=== PATIENT | male | born 1995 | race Caucasian/White ===

== ENCOUNTER 2019-10-08 19:44 | Emergency (ER) | payer OTHER ==
[~2019-10-08] VITALS: Ht 175.3 cm; Wt 70.5 kg
[2019-10-08 20:05] LABS: BASO % 0.3 % (0.0-1.0); EOS % 0.2 % (0.0-3.0); HEMATOCRIT 42.4 % (42.0-52.0); HEMOGLOBIN 14.9 g/dl (13.5-17.5); LYMPH # 0.4 10^3/uL (1.5-5.0); LYMPH % 3.7 % (24.0-44.0); MEAN CORPUSCULAR HEMOGLOBIN 31.8 pg (27.0-33.0); MEAN CORPUSCULAR HGB CONC 35.1 g/dl (32.0-36.5); MEAN CORPUSCULAR VOLUME 90.4 fl (80.0-96.0); MONO # 0.5 10^3/uL (0.0-0.8); MONO % 4.6 % (0.0-5.0); NEUTROPHILS % 90.9 % (36.0-66.0); PLATELET COUNT, AUTOMATED 243 10^3/uL (150-450); RED BLOOD COUNT 4.69 10^6/uL (4.30-6.10)
[2019-10-08] MEDS ORDERED: KETOROLAC 30 MG/ML VIAL (J1885) IV ONE (20:30)
[2019-10-08] MEDS ORDERED: NS 1,000 ML IV ONE (20:30)
[2019-10-08] MEDS ORDERED: ONDANSETRON 4MG/2ML VIAL (J2405) IV ONE (20:30)
[2019-10-08 20:32] LABS: ALT/SGPT 46 U/L (12-78); BILIRUBIN,DIRECT 0.2 MG/DL (0.0-0.2); BILIRUBIN,TOTAL 0.8 MG/DL (0.2-1.0); BLOOD UREA NITROGEN 16 MG/DL (7-18); CALCIUM LEVEL 8.8 MG/DL (8.5-10.1); CARBON DIOXIDE LEVEL 29 MEQ/L (21-32); CHLORIDE LEVEL 105 MEQ/L (98-107); CREATININE FOR GFR 1.09 MG/DL (0.70-1.30); GLOMERULAR FILTRATION RATE > 60.0 (>60); GLUCOSE, FASTING 107 MG/DL (70-100); LIPASE 46 U/L (73-393); POTASSIUM SERUM 4.4 MEQ/L (3.5-5.1); SODIUM LEVEL 140 MEQ/L (136-145); TOTAL PROTEIN 7.7 GM/DL (6.4-8.2)
[2019-10-08] MEDS ORDERED: ONDA4TAB6 PO (22:33)
[2019-10-08 22:40] VITALS: BP 120/58
== END 2019-10-08 22:49 | disposition home or self-care (01) ==
LOC: M ED 19:44
DX: K52.9 Noninfective gastroenteritis and colitis, unspecified (principal); R51 Headache; F17.210 Nicotine dependence, cigarettes, uncomplicated
CPT/HCPCS: 80048; 80076; 81001; 83690; 85025; 96374; 96375; 99284; J1885; J2405

== ENCOUNTER 2019-10-30 08:27 | Emergency (ER) | payer OTHER ==
[~2019-10-30] VITALS: Ht 177.8 cm; Wt 71.1 kg
[2019-10-30 08:27] VITALS: BP 125/66
[~2019-10-30 08:27] MED LIST: ONDA4TAB6 PO
[2019-10-30] MEDS ORDERED: ONDANSETRON 4 MG ORAL DISINTEGRATING TAB (Q0162 PER 1MG) PO ONE (09:30)
[2019-10-30] MEDS ORDERED: ONDA4TAB6 PO (09:31)
== END 2019-10-30 09:45 | disposition home or self-care (01) ==
LOC: M ED 08:27
DX: R11.2 Nausea with vomiting, unspecified (principal); R10.9 Unspecified abdominal pain; F17.218 Nicotine dependence, cigarettes, with other nicotine-induced disorders
CPT/HCPCS: 99282; Q0162

== ENCOUNTER 2022-05-25 13:01 | Inpatient (IN) | payer MEDICAID, OTHER, SELFPAY ==
[~2022-05-25] VITALS: Ht 175.3 cm; Wt 68.1 kg
[2022-05-25 15:00] LABS: HEMOGLOBIN 13.8 g/dl (13.5-17.5); MEAN CORPUSCULAR HEMOGLOBIN 32.2 pg (27.0-33.0); MEAN CORPUSCULAR HGB CONC 36.3 g/dl (32.0-36.5); MEAN CORPUSCULAR VOLUME 88.8 fl (80.0-96.0); PLATELET COUNT, AUTOMATED 263 10^3/uL (150-450); RED BLOOD COUNT 4.28 10^6/uL (4.30-6.10); WHITE BLOOD COUNT 9.4 10^3/uL (4.0-10.0)
[2022-05-25 15:26] LABS: RSV AMPLIFICATION NEGATIVE (NEGATIVE)
[2022-05-25 15:29] LABS: ACETAMINOPHEN LEVEL < 2.0 UG/ML (10.0-30.0); ALBUMIN 4.1 GM/DL (3.2-5.2); ALT/SGPT 37 U/L (12-78); BILIRUBIN,DIRECT < 0.1 MG/DL (0.0-0.2); BILIRUBIN,TOTAL 0.4 MG/DL (0.2-1.0); BLOOD UREA NITROGEN 10 MG/DL (7-18); CALCIUM LEVEL 9.7 MG/DL (8.5-10.1); CARBON DIOXIDE LEVEL 27 MEQ/L (21-32); CHLORIDE LEVEL 108 MEQ/L (98-107); CREATININE FOR GFR 0.93 MG/DL (0.70-1.30); ETHYL ALCOHOL (ETHANOL) < 0.003 % (0.000-0.010); GLOMERULAR FILTRATION RATE > 60.0 (>60); GLUCOSE, FASTING 99 MG/DL (70-100); SALICYLATE LEVEL < 1.7 MG/DL (5.0-30.0); SODIUM LEVEL 141 MEQ/L (136-145); TOTAL PROTEIN 7.4 GM/DL (6.4-8.2)
[2022-05-25 17:13] LABS: AMPHETAMINES LEVEL URINE NEGATIVE (NEGATIVE); BARBITURATES URINE NEGATIVE (NEGATIVE); BENZODIAZEPINES URINE NEGATIVE (NEGATIVE); CANNABINOIDS URINE NEGATIVE (NEGATIVE); COCAINE METABOLITE URINE NEGATIVE (NEGATIVE); METHADONE URINE NEGATIVE (NEGATIVE); OPIATES URINE NEGATIVE (NEGATIVE); PHENCYCLIDINE URINE NEGATIVE (NEGATIVE)
[2022-05-26] MEDS ORDERED: HOME MED LIST COMPLETE! XX SCH (11:10)
[2022-05-27] MEDS ORDERED: OLANZapine ORAL DISINTEGRATING TAB 5MG PO PRN (12:50)
[2022-05-27] MEDS ORDERED: MOM 30ML SUSPENSION UDC PO PRN (12:50)
[2022-05-27] MEDS ORDERED: MAALOX 30 ML SUSP *UDC PO PRN (12:50)
[2022-05-27] MEDS ORDERED: IBUPROFEN 400MG TAB PO PRN (12:50)
[2022-05-27 17:27] VITALS: BP 118/60
[2022-05-27] MEDS: NICOTINE 21MG/24HR 1 EA TRANSDERMAL TD SCH (18:24)
[2022-05-28 06:34] VITALS: BP 122/55
[2022-05-28] MEDS: FLUoxetine 10 MG CAP PO SCH (09:00)
[2022-05-28] MEDS: NICOTINE 21MG/24HR 1 EA TRANSDERMAL TD SCH (10:19)
[2022-05-28 17:30] VITALS: BP 135/72
[2022-05-28] MEDS ORDERED: LORazepam 1 MG TAB PO PRN (18:25)
[2022-05-29 06:43] VITALS: BP 105/61
[2022-05-29] MEDS: FLUoxetine 10 MG CAP PO SCH (09:42)
[2022-05-29] MEDS: NICOTINE 21MG/24HR 1 EA TRANSDERMAL TD SCH (09:42)
[2022-05-29 16:59] VITALS: BP 145/80
[2022-05-30 06:49] VITALS: BP 107/54
[2022-05-30] MEDS: NICOTINE 21MG/24HR 1 EA TRANSDERMAL TD SCH (08:19)
[2022-05-30] MEDS: FLUoxetine 10 MG CAP PO SCH (08:19)
[2022-05-30 17:01] VITALS: BP_SYST 119; BP_SYST 133; BP_DIAS 65; BP_DIAS 68
[2022-05-30] MEDS: traZODone 50 MG TAB PO PRN (21:58)
[2022-05-31 06:32] VITALS: BP 124/58
[2022-05-31] MEDS: NICOTINE 21MG/24HR 1 EA TRANSDERMAL TD SCH (08:10)
[2022-05-31] MEDS: FLUoxetine 10 MG CAP PO SCH (08:10)
[2022-05-31 18:21] VITALS: BP 121/59
[2022-05-31] MEDS: traZODone 50 MG TAB PO PRN (21:20)
[2022-06-01 06:41] VITALS: BP 121/59
[2022-06-01] MEDS: FLUoxetine 10 MG CAP PO SCH (09:16)
[2022-06-01] MEDS: NICOTINE 21MG/24HR 1 EA TRANSDERMAL TD SCH (09:17)
[2022-06-01] MEDS ORDERED: TRAZ-252 PO (11:16)
[2022-06-01] MEDS ORDERED: FLUO10CA18 PO (11:16)
== END 2022-06-01 11:43 | disposition home or self-care (01) | DRG 754 ==
LOC: M ED 13:01 → M ED INP 05-27 12:47 → M PSY 05-27 16:45
PROVIDERS: ADMIT Psychiatry & Neurology Psychiatry; ATTEND Psychiatry & Neurology Psychiatry
DX: F32.A Depression, unspecified (principal); R45.851 Suicidal ideations; Z59.9 Problem related to housing and economic circumstances, unspecified; Z65.3 Problems related to other legal circumstances; F17.200 Nicotine dependence, unspecified, uncomplicated; F32.9 Major depressive disorder, single episode, unspecified

== ENCOUNTER 2025-01-18 16:00 | Emergency (ER) | payer MEDICAID, SELFPAY ==
[~2025-01-18] VITALS: Ht 177.8 cm; Wt 80.1 kg
[~2025-01-18 16:00] MED LIST changes: +FLUO-290 PO; +ONDA-282 PO; -ONDA4TAB6 PO; +TRAZ-252 PO
[2025-01-18 18:08] VITALS: BP 133/82; TEMP 99; O2SAT 100
== END 2025-01-18 18:39 | disposition home or self-care (01) ==
LOC: M ED 16:00
DX: S63.41 Traumatic rupture of collateral ligament of finger at metacarpophalangeal and interphalangeal joint (principal); X50.0XXA Overexertion from strenuous movement or load, initial encounter; Y92.89 Other specified places as the place of occurrence of the external cause; Y93.89 Activity, other specified; Y99.0 Civilian activity done for income or pay; F17.210 Nicotine dependence, cigarettes, uncomplicated